=== PATIENT | female | born 1970 | race Caucasian/White ===

== ENCOUNTER 2022-05-26 10:23 | Outpatient (CLI) | payer OTHER, SELFPAY ==
--- NOTE | 2022-05-26 10:36 | ECG_ITS ---
Measurements Intervals [place] Rate: 71 P: 46 KS: 152 QRS: 52 QRSD: 80 T: 55 QT: 374 QTc: 407 Interpretive Statements SINUS RHYTHM NORMAL ECG NO PREVIOUS ECG AVAILABLE FOR COMPARISON Electronically Signed On 05-26-2022 11:54:11 RN [facility] by Yvan Mantilla D.O.
== END 2022-05-26 10:24 | disposition home or self-care (01) ==
PROVIDERS: Visit Provider Surgery Plastic and Reconstructive Surgery
DX: E78.00 Pure hypercholesterolemia, unspecified (principal); Z01.818 Encounter for other preprocedural examination
CPT/HCPCS: 93005

== ENCOUNTER 2022-05-30 00:42 | Day surgery (SDC) | payer OTHER, SELFPAY ==
[2022-05-23 13:57] VITALS: BMI 27.5
--- NOTE | 2022-05-23 14:24 | SUR.PREOP ---
Report to the Outpatient Waiting Room, entrance under the green pavilion located off [facility], at time 1100 on date 05/30/2022. Planned Procedure Time: 1300. Time changes happen often and if your time is changed the preop area will call you the afternoon before. - You and your visitor will be asked to self-screen and do not enter if you have any COVID symptoms. - We encourage only one visitor and NO visitors under age 16 are allowed at this time. Your visitor will receive communication by the phone number that is given day of service. - The patient visitor is requested to social distance or may leave the building when not with patient due to restrictions. - A mask is required within the hospital. Patients may have clear liquids (water, carbonated beverages, clear teas, apple juice) until 3 hours prior to surgery with a maximum of 20 ounces- 1000. - No food from midnight until time of surgery - Infants may have breast milk until 4 hours before surgery, formula 6 hours prior to surgery. - Children will be allowed to drink immediately following surgery. If applicable, please bring a bottle or sippy cup to assist with drinking. Juice, water, soda, and popsicles are readily available. For infants on formula, please bring formula the day of surgery. Pacifiers are allowed. Take the following medications with a SIP of water the morning of surgery: Zoloft Medications to discontinue per physician Multivitamin Date to take last dose 05/27/2022 Please no make-up, nail citizen of [place], hairspray, perfume, deodorant, or body powder the day of surgery. No jewelry (including any body piercings) or valuables the day of surgery, leave them at home. Please take a shower or bath the night before, or the morning of, surgery with an antibacterial soap. Wear comfortable, loose fitting clothing. Children are encouraged to wear pajamas. - Jewelry must be removed prior to entering the operating room. Rings and piercings that are not removed may be cut off. - The hospital will not accept responsibility for valuables. - Please leave all valuables, including medications, at home the day of surgery. If you are going home after surgery, a licensed commercial driver's license driver must drive you home. - NO public transportation without another adult. - We recommend that an adult stay with you for 24 hours following discharge. - We also recommend that you do not drive, make important decision, drink alcoholic beverages, or take any drugs that were not prescribed by your health care provider for at least 24 hours after your discharge time. For Pediatric surgeries, we recommend two adults accompany the child home. Follow any additional instructions given to you from your surgeon. If you or anyone in your household have experienced Covid symptoms in the past week, please notify your surgeon or the nurse liaison at the phone number below for possible testing. Telephone instructions given to ____Allyssa and asked if any additional questions and then verbalized understanding. Patient advised to call surgeon office or pre surgery nurse liaison [phone] if any additional questions.
[2022-05-30] VITALS (9 sets, daily range): BP systolic 97–116; BP diastolic 63–75; PULSE 73–94; RESP 12–16; TEMP 36.2–36.8; O2SAT 100
[2022-05-30] MEDS: LACTATED RINGERS 1,000 ML 30 ML IV CONT ×2 (11:15→13:26)
[2022-05-30 11:20] LABS: Urine Cotinine NEGATIVE
--- NOTE | 2022-05-30 11:40 | WPDHPUPDATE1 ---
History and Physical Update Update Date/Time: 05/30/22 11:40 History and Physical has been reviewed, including an updated exam of the patient. There are NO changes in the patient's condition. Risks, benefits, and alternatives have been discussed and questions answered. Patient agrees to proceed with procedure.
--- NOTE | 2022-05-30 11:46 | W.PM.PROC2 ---
Procedure Note - Detailed Date of Procedure 05/30/22 Pre-op Diagnosis Hx of Breast Aug Post-op Diagnosis Same Procedure Performed Bilateral implant removal with capsulectomy Surgeon Sean Rushing MD Anesthesia General Findings Style 15- 265cc implants bilateral intact. Description of Procedure She is here for the above procedure. Preoperatively risks, benefits, alternatives were discussed in extensive detail. Want her to be very realistic about risks involved as well as expectations. We discussed options or drains with the procedure including all her options. Made sure answered everyone of her questions to her satisfaction again today. She voiced clear understanding. Consent was obtained. She was taken to the operating room placed supine on the operating room table. Anesthesia provided by anesthesiology. She was prepped and draped in the standard sterile fashion. Surgical time-out was. 1% lidocaine and 0.25% Marcaine with epinephrine was used to provide a field block. Fifteen blade used to excise along previous scar. Dissection was continued down to the capsules identified it is an elevated above the capsule for majority of the capsule. At this point the implant and the capsule were removed. Capsule sent to pathology. I copiously irrigated with 3 L of saline solution on TUR tubing. Verified strict hemostasis. I closed with 2-0 Vicryl followed by 3-0 Stratafix in running subcuticular 4-0 Monocryl and tissue glue. Dressings and a surgical bra were placed. She tolerated the procedure well. Estimated Blood Loss 10 Drains No Packing No Pathology Yes (Bilateral implant capsules) Complications No immediate complications Condition Stable Disposition PACU
--- NOTE | 2022-05-30 12:26 | P.PNAN_ITS ---
Anes - Initial Pre Proc Eval Procedure: Operation Date: 05/30/22 13:00 Proposed Procedures p Bilateral Breast Implant Removal with Capsulectomy - Sean Rushing MD Date/Time: 05/30/22 12:26 Surgeon: Sean Rushing MD Pre Op Diagnosis: Hx of Breast Aug Patient Data Age: 52 Gender: F Height: 1.6 m Weight: 71 kg Last Vital Signs Temp 98.2 F 05/30/22 11:30 Pulse 77 05/30/22 11:30 Resp 16 05/30/22 11:30 BP 97/68 L 05/30/22 11:30 Pulse Ox 100 05/30/22 11:30 O2 Del Method Room Air 05/30/22 11:30 Allergies Allergy/AdvReac Type Severity Reaction Status Date / Time Penicillins Allergy Unknown Hives Verified 05/30/22 11:54 Sulfa (Sulfonamide Allergy Unknown Hives Verified 05/30/22 11:54 Antibiotics) Home Medications Medication Instructions Recorded Confirmed Type multivit with minerals-iron 18 1 tablet PO DAILY 05/23/22 05/30/22 History mg-folic ac 400 mcg-vit K 25 mcg tablet (Adults Multivitamin) sertraline 50 mg tablet (Zoloft) 50 mg PO DAILY 05/23/22 05/30/22 History Laboratory Tests 05/30/22 10:55 Cotinine Negative Patient hx anesthesia problems: none Family hx anesthesia problems: none Results Review: All pre-operative results and documents have been reviewed as part of the pre- operative evaluation. [facility] Social History Social History Smoking status: Never smoker Alcohol intake: current Alcohol use details: socially- x1 per month Living arrangements: with family Spiritual care concerns: No Anes - Eval Final PreProcedure Day of Procedure 05/30/22 12:26 Patient weight: normal Heart: regular rate and rhythm Lungs: clear to auscultation Airway: Mallampati scale class II Neurological: alert and oriented Last oral intake: >/= 8 hours ASA classification: II Emergent: no Anesthetic plan: proceed Anesthesia type and monitoring: general LMA and standard monitoring Results Review: All pre-operative results and documents have been reviewed as part of the pre- operative evaluation. Informed Consent: The patient's anesthetic plan and its attendant risks and benefits were discussed with the patient/family/POA. Questions were solicited and answers provided to the satisfaction of the patient/family/POA.
[2022-05-30] MEDS: ceFAZolin 2 GM/D5W 50 ML 2 GM/50 ML BAG IVPB (12:29)
[2022-05-30] MEDS: LIDOCAINE HCL 1% PF 30 ML VIAL INFILTRATE (12:37)
[2022-05-30] MEDS: BUPIVACAINE/EPINEPHRINE 0.25% 50 ML VIAL INFILTRATE (12:37)
[2022-05-30] MEDS: TRANEXAMIC ACID 1,000MG/ISO100 1,000 MG/100 ML BAG 200 MG IVPB (12:39)
[2022-05-30] MEDS: fentaNYL CITRATE INJ (*CRX) 100 MCG/2 ML VIAL 25 MCG IV PUSH (14:01)
[2022-05-30] MEDS: ONDANSETRON INJ 4 MG/2 ML VIAL IV PUSH (14:32)
== END 2022-05-30 15:06 | disposition home or self-care (01) ==
PROVIDERS: Visit Provider Surgery Plastic and Reconstructive Surgery
PROC: 0HPT0JZ Removal of Synthetic Substitute from Right Breast, Open Approach (ICD-10-PCS; CPT 19371; principal; 2022-05-30 13:00)
DX: Z45.812 Encounter for adjustment or removal of left breast implant (principal); Z45.811 Encounter for adjustment or removal of right breast implant
CPT/HCPCS: 19371; 80307; 88304; J0690; J1100; J1170; J2250; J2405; J2704; J3010; J7120